=== PATIENT | male | born 1960 | race African-American/Black ===

== ENCOUNTER 2019-03-02 03:24 | Emergency (ER) | payer MEDICAID ==
[~2019-03-02] VITALS: Ht 195.6 cm; Wt 142.9 kg
[2019-03-02 03:25] VITALS: BP_SYST 127
[2019-03-02] MEDS ORDERED: CEPHALEXIN 500 MG CAPSULE PO ONE (06:00)
[2019-03-02] MEDS ORDERED: FLUCONAZOLE 100 MG TABLET (DIFLUCAN) PO ONE (06:00)
[2019-03-02] MEDS ORDERED: ACETAMINOPHEN 500 MG TABLET PO ONE (06:30)
[2019-03-02 06:40] VITALS: BP_SYST 126
== END 2019-03-02 06:40 | disposition home or self-care (01) ==
LOC: SED 03:24
DX: B37.89 Other sites of candidiasis (principal)
CPT/HCPCS: 99284